=== PATIENT | male | born 1950 | race Two or more races ===

== ENCOUNTER 2025-05-29 09:02 | Inpatient (IN) | payer MEDICARE, MEDICAID ==
[~2025-05-29] VITALS: Ht 188 cm; Wt 96.7 kg
[2025-05-29 09:31] VITALS: PULSE 96; O2SAT 97
--- NOTE | 2025-05-29 09:34 | ED.PDOC ---
History of present illness HPI Comments 74 y/o M, with PMHx of Parkinson, seizures, and thyroid disease presents to the ED for CC of hypoglycemia. EMS reports, patient is coming from [facility] longterm where he was found by staff being difficult to arouse. [facility] EMS[facility] sugar and received a reading of 32; 1mg of glycogen was given prior to their arrival with a positive response. Upon arrival to the scene, patient was able to answer question appropriately and was given an additional 25g of D10. Patient denies dizziness, weakness, nausea, vomiting, urinary frequency, or blurred vision. No other symptoms or modifying factors are present at this time. Chief Complaint: Hypoglycemia Time Seen by MD: 09:15 History of present illness: Nurses Notes, Medications, Allergies Allergies: Coded Allergies: NO KNOWN ALLERGIES (Unverified , 05/29/25) Information Source: Patient Mode of Arrival: EMS Timing: Hours Duration: Since onset Prehospital treatment: Other Associated signs and symptoms: None Past Medical History PAST MEDICAL HISTORY: HTN, Seizures, Thyroid Surgical History: Unknown Family History Family History: Unknown Social History Smoker: Non-Smoker Alcohol: Denies ETOH Use Drugs: Denies Drug Use Lives In: Pen[facility] Constitutional: denies: chills, diaphoresis, fatigue, fever, malaise, sweats, weakness, others EENTM: denies: blurred vision, double vision, ear bleeding, ear discharge, ear drainage, ear pain, ear ringing, eye pain, eye redness, hearing loss, mouth pain, mouth swelling, nasal discharge, nose bleeding, nose congestion, nose pain, photophobia, tearing, throat pain, throat swelling, voice changes, others Respiratory: denies: cough, hemoptysis, orthopnea, SOB at rest, shortness of breath, SOB with excertion, stridor, wheezing, others Cardiovascular: denies: chest pain, dizzy spells, diaphoresis, Dyspnea on exertion, edema, irregular heart beat, left arm pain, lightheadedness, palpitations, PND, syncope, others Gastrointestinal: denies: abdomen distended, abdominal pain, blood streaked bowels, constipated, diarrhea, dysphagia, difficulty swallowing, hematemesis, melena, nausea, poor appetite, poor fluid intake, rectal bleeding, rectal pain, vomiting, others Genitourinary: denies: burning, dysuria, flank pain, frequency, hematuria, incontinence, penile discharge, penile sore, pain, testicle pain, testicle swelling, urgency, others Neurological: denies: dizziness, fainting, headache, left sided numbness, left sided weakness, numbness, paresthesia, pre-existing deficit, right sided numbness, right sided weakness, seizure, speech problems, tingling, tremors, weakness, others Musculoskeletal: denies: back pain, gout, joint pain, joint swelling, muscle pain, muscle stiffness, neck pain, others Integumetry: denies: bruises, change in color, change in hair/nails, dryness, laceration, lesions, lumps, rash, wounds, others Allergic/Immunocompromised: denies: Difficulty Healing, Frequent Infections, Hives, Itching, others Hematologic/Lymphatic: denies: anemia, blood clots, easy bleeding, easy bruising, swollen glands, others Endocrine: denies: excessive hunger, excessive sweating, excessive thirst, excessive urination, flushing, intolerance to cold, intolerance to heat, unexplained weight gain, unexplained weight loss, others Psychiatric: denies: anxiety, bipolar disorder, depression, hopeless, panic disorder, schizophrenia, sleepless, suicidal, others All Other Systems: Reviewed and Negative Physical Exam General Appearance: No Apparent Distress, Normal HEENT: Normal ENT Inspection, Pharynx Normal, TMs Normal Neck: Full Range of Motion, Non-Tender, Normal, Normal Inspection Respiratory: Chest Non-Tender, Lungs Clear, No Accessory Muscle Use, No Re spiratory Distress, Normal Breath Sounds Cardiovascular: No Edema, No JVD, No Murmur, No Gallop, Normal Peripheral Pulses, Regular Rate/Rhythm Breast Exam: Deferred Gastrointestinal: No Organomegaly, Non Tender, No Pulsatile Mass, Normal Bowel Sounds, Soft Genitalia: Deferred Pelvic: Deferred Rectal: Deferred Extremities: No calf tenderness, Normal capillary refill, Normal inspection, Normal range of motion, Non-tender, No pedal edema Musculoskeletal : Apperance: Normal Neurologic: Alert, glass forming engineer II-XII nml as Tested, No Motor Deficits, Normal Affect, Normal Mood, No Sensory Deficits Cerebellar Function: Normal Reflexes: Normal Skin: Dry, Normal Color, Warm Lymphatic: No Adenopathy Was a procedure done? Was a procedure done?: No Differential Diagnosis (DM) Differential Diagnosis: Hypoglycemia X-Ray, Labs, Meds, VS Vital Signs Date Time Temp Pulse Resp B/P (MAP) Pulse Ox O2 Delivery O2 Flow Rate FiO2 05/29/25 10:00 94 12 146/77 (100) 96 05/29/25 09:41 97 18 141/92 (108) 96 05/29/25 09:31 96 97 Room Air* 0 21 05/29/25 09:08 97.6 94 17 128/62 95 97.6 Lab Test 05/29/25 11:25 05/29/25 10:12 Range/Units Troponin I High Sensitivity Pending 5 </=54 ng/L White Blood Count 11.5 H 4.4-10.8 10^3/uL Red Blood Count 4.89 4.5-5.90 10^6/uL Hemoglobin 15.4 13.5-17.5 g/dL Hematocrit 44.2 41.0-53.0 % Mean Corpuscular Volume 90.5 80.0-100.0 fL Mean Corpuscular Hemoglobin 31.6 28.0-32.0 pg Mean Corpuscular Hemoglobin Concent 34.9 32.0-36.0 g/dL Red Cell Distribution Width 12.7 11.8-14.3 % Platelet Count 207 140-450 10^3/uL Mean Platelet Volume 9.6 6.9-10.8 fL Neutrophils (%) (Auto) 91.8 H 37.0-80.0 % Lymphocytes (%) (Auto) 4.5 L 10.0-50.0 % Monocytes (%) (Auto) 3.2 0.0-12.0 % Eosinophils (%) (Auto) 0.0 0.0-7.0 % Basophils (%) (Auto) 0.5 0.0-2.0 % Neutrophils # (Auto) 10.5 H 1.6-8.6 10 ^3/uL Lymphocytes # (Auto) 0.5 0.4-5.4 10 ^3/uL Monocytes # (Auto) 0.4 0-1.3 10 ^3/uL Eosinophils # (Auto) 0 0-0.8 10 ^3/uL Basophils # (Auto) 0.1 0-0.2 10 ^3/uL Nucleated Red Blood Cells 0.1 % Sodium Level 138 136-145 mmol/L Potassium Level 4.5 3.5-5.1 mmol/L Chloride Level 102 98-107 mmol/L Carbon Dioxide Level 19 L 20-31 mmol/L Anion Gap 17 H 5-15 Blood Urea Nitrogen 14 9-23 mg/dL Creatinine 1.00 0.700-1.30 mg/dL Glomerular Filtration Rate Calc 80 >90 mL/min BUN/Creatinine Ratio 14.0 10.0-20.0 Serum Glucose 187 H 74-106 mg/dL Calcium Level 9.8 8.7-10.4 mg/dL Current Medications Medications (Trade) Dose Ordered Sig/Edith Route Start Time Stop Time Status Last Admin Carbidopa/Levodopa (Sinemet 25/ 100MG) 1 tab ONCE ONCE PO 05/29/25 09:45 05/29/25 09:46 DC 05/29/25 10:08 [place] [address] Ph: [phone] DIAGNOSTIC IMAGING Diagnostic Imaging Report : [id number] Signed PATIENT: PEMA BERMEOACCT: [id number] UNIT: [id number] : 1950 LOC: ER ROOM / BED: / AGE / SEX: 74 / M ADM STATUS: REG ER SERVICE ORDERING PHYSICIAN: MAREK NINA MD PROCEDURE(s): CXRP - CHEST PORTABLE REASON: weakness ORDER NUMBER(s): [id number], ACCESSION NUMBER(s): [id number] EXAM: XY CHEST PORTABLE HISTORY: weakness COMPARISON: None TECHNIQUE: Portable AP view of the chest was performed. FINDINGS: There is left mid lung opacity partially obscuring the left heart border. There is a calcified granuloma in the right mid lung. No pneumothorax. The heart is not enlarged. 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 IMPRESSION: Left mid lung opacity partially obscures the left heart border and may represent atelectasis, scarring, or pneumonia. In the absence of previous chest imaging, consider follow-up noncontrast CT scan of the chest for better characterization. ATED BY: ANGELLA TYLER MD DICTATED DATE/TIME: 05/29/25 1017 SIGNED BY: ANGELLA TYLER MD SIGNED DATE/TIME: 05/29/25 1017 CC: Time of 1ST Reevaluation: 09:45 Reevaluation 1ST: Unchanged Patient Education/Counseling: Diagnosis, Treatment Family Education/Counseling: No Family Present SEPSIS Sepsis Screen Date sepsis recognized/suspect: May 29, 2025 Time Sepsis recognized/suspect: 909 Recent Procedure: No On Antibiotic Therapy: No Respiratory Rate >20: No Heart Rate >90: Yes Temp<36 C (96.8 F) or >38.3 C: No SBP <90 or MAP <65 mmHG: No New Acute Mental Status Change: No Is the patient on CPAP, BIPAP,: No Physician Orders Urinalysis (05/29/25 09:44) Chest Portable (05/29/25 09:44) Troponin-I Hs (05/29/25 10:44) Troponin-I Hs (05/29/25 12:44) Vital Signs Date Time Temp Pulse Resp B/P (MAP) Pulse Ox O2 Delivery O2 Flow Rate FiO2 05/29/25 10:00 94 12 146/77 (100) 96 05/29/25 09:41 97 18 141/92 (108) 96 05/29/25 09:31 96 97 Room Air* 0 21 05/29/25 09:08 97.6 94 17 128/62 95 97.6 Laboratory Tests Test 05/29/25 10:12 White Blood Count 11.5 10^3/uL (4.4-10.8) H Medications Medications Dose Ordered Sig/Edith Route Start Time Stop Time Status Last Admin Dose Admin Carbidopa/Levodopa 1 tab ONCE ONCE PO 05/29/25 09:45 05/29/25 09:46 DC 05/29/25 10:08 Departure 1 Departure Time of Disposition: 11:50 (Patient with recurrent hypoglycemia and found to have a pneumonia. Patient patient will be empirically covered with antibiotics and admitted for further workup and expert consultation) Impression: Primary Impression: Pneumonia Qualified Codes: J18.9 - Pneumonia, unspecified organism Additional Impressions: Shortness of breath Recurrent severe hypoglycemia Acute metabolic encephalopathy Disposition: ADMITTED INPATIENT Admit to: Med Surg Condition: Serious Critical Care Note Critical Care Time?: Yes Critical care comment: Altered mental status Authorized and Performed by: Marek Nina MD Total critical care time: Approximately 38 minutes Due to a high probability of clinically significant, life threatening deterioration, the patient required my highest level of preparedness to intervene emergently and I personally spent this critical care time directly and personally managing the patient. This critical care time included obtaining a history; examining the patient; pulse oximetry; ordering and review of studies; arranging urgent treatment with development of a management plan; evaluation of patient's response to treatment; frequent reassessment; and, discussions with other providers. This critical care time was performed to assess and manage the high probability of imminent, life-threatening deterioration that could result in multi-organ failure. It was exclusive of separately billable procedures and treating other patients and teaching time. Please see my other sections and the rest of the note for further information on patient assessment and treatment. Stability Stability form required: No Heart Score Heart Score: Heart Score Response (Comments) Value History N/A 0 EKG N/A 0 Age N/A 0 Risk Factors N/A 0 Troponin N/A 0 Total 0 I personally scribed for MAREK NINA MD ([email or web address]) on 05/29/25 at 09:34. Electronically submitted by Neeta Bucio ([email or web address]). I personally scribed for MAREK NINA MD ([email or web address]) on 05/29/25 at 09:43. Electronically submitted by Neeta Bucio ([email or web address]). I personally scribed for MAREK NINA MD ([email or web address]) on 05/29/25 at 10:52. Electronically submitted by Neeta Bucio ([email or web address]). MAREK NINA MD May 29, 2025 09:34
[2025-05-29] MEDS: CARBIDOPA W LEVODOPA 25/100mg TABLET PO ONE (10:08)
--- NOTE | 2025-05-29 10:20 | DVH ---
EXAM: XY CHEST PORTABLE HISTORY: weakness COMPARISON: None TECHNIQUE: Portable AP view of the chest was performed. FINDINGS: There is left mid lung opacity partially obscuring the left heart border. There is a calcified granu jorge in the right mid lung. No pneumothorax. The heart is not enlarged. There is thoracic degenerati ve disc disease. IMPRESSION: Left mid lung opacity partially obscures the left heart border and may represent atelectasis, scarrin g, or pneumonia. In the absence of previous chest imaging, consider follow-up noncontrast CT scan of the chest for better characterization.
[2025-05-29 10:23] LABS: Hematocrit 44.2 % (41.0-53.0); Hemoglobin 15.4 g/dL (13.5-17.5); Mean Corpuscular Hemoglobin 31.6 pg (28.0-32.0); Mean Corpuscular Volume 90.5 fL (80.0-100.0); Nucleated Red Blood Cells % 0.1 %
[2025-05-29 10:32] LABS: Chloride 102 mmol/L (98-107); Potassium 4.5 mmol/L (3.5-5.1); Sodium 138 mmol/L (136-145)
[2025-05-29 10:33] LABS: Anion Gap 17 (5-15)
[2025-05-29 10:34] LABS: Calcium 9.8 mg/dL (8.7-10.4); Carbon Dioxide 19 mmol/L (20-31)
[2025-05-29 10:39] LABS: BUN/Creatinine Ratio 14.0 (10.0-20.0); Blood Urea Nitrogen 14 mg/dL (9-23); Glucose 187 mg/dL (74-106)
[2025-05-29] MEDS: AZITHROMYCIN 250 MG TAB PO ONE (12:53)
[2025-05-29] MEDS: CEFEPIME 2GM/50ML NS 50 ML IV ONE (12:54)
[2025-05-29] MEDS: SODIUM CHLORIDE 0.9% 1,000 ML IV ONE (12:54)
[2025-05-29 13:02] LABS: Urine Protein, UAD Negative (Negative)
[2025-05-29 14:09] LABS: Lactic Acid w/Reflex 5.4 mmol/L (0.4-2.0)
[2025-05-29] MEDS ORDERED: DOCUSATE SOD 100 MG CAP PO PRN (15:00)
[2025-05-29] MEDS ORDERED: DEXTROSE (50%) 50ML SYRG IV PRN ×2 (15:00→18:15)
[2025-05-29] MEDS: levETIRAcetam 500 mg/100ml 100 ML IV ONE (15:00)
[2025-05-29] MEDS ORDERED: NITROGLYCERIN 0.4 MG SL TAB SL PRN (15:00)
[2025-05-29] MEDS ORDERED: MORPHINE SULFATE INJ 2 MG/ml SYRG IV PRN (15:00)
[2025-05-29] MEDS: HYDROcodone-ACET 5/325MG TAB PO ONE (15:00)
[2025-05-29] MEDS: levETIRAcetam 1000 mg/100ml 100 ML IV ONE (15:00)
[2025-05-29] MEDS ORDERED: AZITHROMYCIN 500MG/ 250ML 250 ML IV ONE (15:00)
[2025-05-29] MEDS: PIPERACILLIN-TAZOB 3.375GM 100 ML IV ONE (15:15)
--- NOTE | 2025-05-29 15:19 | DVHHP2 ---
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 chief complaint [facility] they found patient difficult to arouse in altered they checked his glucose and it was low at 32 they gave him glycogen oral which gave good response but patient was still little bit altered so they gave him some glucose to IV which really awaken him patient currently in bed shaking with Parkinson's movement with a flushed face but he is requesting his seizure med because he has not had it this morning he currently denies any chest pain denies any shortness a breath when evaluating patient's labs and imaging cefepime was given azithromycin we will saline patient's Sinemet was given for Parkinson's disease white count was found to be 11.5 glucose was 187 troponin x2 was negative patient has a chest x-ray shows left lung mid with a opacities and recommended a CT scan of the chest which we will be order patient was started on prophylaxis treatment for aspiration pneumonia since it appears to be pneumonia UA shows few ketones otherwise unremarkable we will admit and check Accu-Cheks every 4 hours for now. We will admit for further workup and care Past Medical History See HPI above Past Surgical History See HPI above Past Social History The patient lives at home, denies smoking, alcohol or illicit drugs abuse. Review of Systems Constitutional: No: Fever, Chills, Sweats, Weakness, Malaise, Other Eyes: No: Pain, Vision change, Conjunctivae inflammation, Eyelid inflammation, Other, Redness ENT: No: Ear pain, Ear discharge, Nose pain, Nose discharge, Nose congestion, Mouth pain, Mouth swelling, Throat pain, Throat swelling, Other Respiratory: No: Cough, Dry, Shortness of breath, SOB with excertion, Wheezing, Hemoptysis, Pleuritic Pain, Sputum, Wheezing, Other Cardiovascular: No: Chest Pain, Palpitations, Orthopnea, Paroxysmal Noc. Dyspnea, Edema, Lt Headedness, Other Gastrointestinal: No: Nausea, Vomiting, Abdominal Pain, Diarrhea, Constipation, Melena, Hematochezia, Other Genitourinary: No Dysuria, No Frequency, No Incontinence, No Hematuria, No Retention, No Other Musculoskeletal: No: other, neck pain, shoulder pain, arm pain, back pain, hand pain, leg pain, foot pain Skin: No: Rash, Lesions, Jaundice, Bruising, Other Neurological: Confusion; No: Weakness, Numbness, Incoordination, Change in speech, Seizures, Other Allergies: Coded Allergies: NO KNOWN ALLERGIES (Unverified , 05/29/25) Exam Vital Signs Vital Signs Date Time Temp Pulse Resp B/P (MAP) Pulse Ox O2 Delivery O2 Flow Rate FiO2 05/29/25 10:00 94 12 146/77 (100) 96 05/29/25 09:31 Room Air* 0 21 05/29/25 09:08 97.6 97.6 General Appearance: Alert, Oriented X3, Cooperative, No acute distress HEENT: Atraumatic, PERRLA, EOMI, Mucous membr. moist/pink Respiratory: Other (Diminished lung sounds throughout) Cardiovascular: Regular rate, Normal S1, Normal S2, No murmurs Abdominal: Normal bowel sounds, Soft, No tenderness, No hepatospenomegaly, No masses Extremities: No clubbing, No cyanosis, No edema, Normal pulses, No tenderness/swelling Skin: No rashes, No breakdown, No significant lesion Neuro: Normal gait, Normal speech, Strength at 5/5 X4 ext, Normal tone, Sensation intact, Other (Acute shaking on exam consistent with his Parkinson's moment) Psych/Mental Status: Mental status NL, Mood NL Labs/Xrays Chest x-ray shows left lung med opacity recommends CT scan I reviewed labs, imaging CT scan abdomen pelvis, EKG and all diagnostic studies on this patient from ED records and the medical chart Labs Test 05/29/25 14:08 05/29/25 13:22 05/29/25 12:35 05/29/25 10:12 Range/Units POC Glucose 330 H 70-106 mg/dl Lactic Acid Level 5.4 *H 0.4-2.0 mmol/L Troponin I High Sensitivity 12 </=54 ng/L Urine Color Light-yellow Yellow Urine Clarity Clear Clear Urine pH 5.0 5.0-9.0 Urine Specific Gallion 1.014 1.001-1.035 Urine Protein Negative Negative Urine Ketones 3+ H Negative Urine Blood Trace H Negative /uL Urine Nitrite Negative Negative Urine Bilirubin Negative Negative Urine Urobilinogen Normal Negative mg/dL Urine Leukocyte Esterase Negative Negative /uL Urine RBC 3 0 - 3 /hpf Urine Microscopic WBC 1 0-3 /HPF Urine Squamous Epithelial Cells Few <5 /hpf Urine Bacteria None seen None Seen /hpf Urine Glucose 4+ H Normal mg/dL White Blood Count 11.5 H 4.4-10.8 10^3/uL Red Blood Count 4.89 4.5-5.90 10^6/uL Hemoglobin 15.4 13.5-17.5 g/dL Hematocrit 44.2 41.0-53.0 % Mean Corpuscular Volume 90.5 80.0-100.0 fL Mean Corpuscular Hemoglobin 31.6 28.0-32.0 pg Mean Corpuscular Hemoglobin Concent 34.9 32.0-36.0 g/dL Red Cell Distribution Width 12.7 11.8-14.3 % Platelet Count 207 140-450 10^3/uL Mean Platelet Volume 9.6 6.9-10.8 fL Neutrophils (%) (Auto) 91.8 H 37.0-80.0 % Lymphocytes (%) (Auto) 4.5 L 10.0-50.0 % Monocytes (%) (Auto) 3.2 0.0-12.0 % Eosinophils (%) (Auto) 0.0 0.0-7.0 % Basophils (%) (Auto) 0.5 0.0-2.0 % Neutrophils # (Auto) 10.5 H 1.6-8.6 10 ^3/uL Lymphocytes # (Auto) 0.5 0.4-5.4 10 ^3/uL Monocytes # (Auto) 0.4 0-1.3 10 ^3/uL Eosinophils # (Auto) 0 0-0.8 10 ^3/uL Basophils # (Auto) 0.1 0-0.2 10 ^3/uL Nucleated Red Blood Cells 0.1 % Sodium Level 138 136-145 mmol/L Potassium Level 4.5 3.5-5.1 mmol/L Chloride Level 102 98-107 mmol/L Carbon Dioxide Level 19 L 20-31 mmol/L Anion Gap 17 H 5-15 Blood Urea Nitrogen 14 9-23 mg/dL Creatinine 1.00 0.700-1.30 mg/dL Glomerular Filtration Rate Calc 80 >90 mL/min BUN/Creatinine Ratio 14.0 10.0-20.0 Serum Glucose 187 H 74-106 mg/dL Calcium Level 9.8 8.7-10.4 mg/dL SEPSIS Sepsis Screen Date sepsis recognized/suspect: May 29, 2025 Time Sepsis recognized/suspect: 909 Recent Procedure: No On Antibiotic Therapy: No Respiratory Rate >20: No Heart Rate >90: Yes Temp<36 C (96.8 F) or >38.3 C: No SBP <90 or MAP <65 mmHG: No New Acute Mental Status Change: No Is the patient on CPAP, BIPAP,: No Physician Orders Chest Portable (05/29/25 09:44) Blood Culture (05/29/25 11:49) Levetiracetam 1000 Mg/100ml (Levetiracet (05/29/25 15:00) Levetiracetam 500 Mg/100ml (Levetiraceta (05/29/25 15:00) Hydrocodone-Acet 5/325mg Tab (Naco 5/32 (05/29/25 15:00) Consistent Carb(Ccho)Diabetes (05/29/25 Dinner) Admit (05/29/25 14:53) Allergies (05/29/25 14:53) Code Status (05/29/25 14:53) Oxygen Per Hour (05/29/25 14:53) Ondansetron Hcl (Zofran) (05/29/25 15:00) Docusate Sodium Capsule (Colace Capsule) (05/29/25 15:00) Enoxaparin Sodium (Lovenox) (05/30/25 10:00) Fall Risk Precautions In Place QSHIFT (05/29/25 14:53) Complete Blood Count (05/30/25 04:00) Comprehensive Metabolic Panel (05/30/25 04:00) Cardiac Diet-2gna,Lofat,Lochol (05/29/25 Dinner) Condition: Stable (05/29/25 14:53) Morphine Sulfate Injection (05/29/25 15:00) Sequential Compression Device (05/29/25 ) Nitroglycerin Sublingual (Ntrostat Subli (05/29/25 15:00) Stat Ekg For Chest Pain (05/29/25 14:53) Notify Of Changes From Base (05/29/25 14:53) Digital Program Manager For 24 Hours (05/29/25 14:53) Emergency Dysrhythmia Protocol (05/29/25 14:53) Rhythm Strips Once Every Shift (05/29/25 14:53) Oxygen By Nasal Cannula (05/29/25 14:53) Glucose Blood (Accu-Chek Comfort Curve T (05/29/25 16:00) Dextrose 50% Syringe (05/29/25 15:00) Seizure Assessment (05/29/25 14:53) Seizure Precautions (05/29/25 ) Seizure Precautions In Place (05/29/25 14:53) Communication Order (05/29/25 14:53) Ceftriaxone Ivpb Rocephin (05/30/25 09:00) Ceftriaxone Ivpb Rocephin (05/29/25 15:00) Azithromycin 500mg/ 250ml (Zithromax 50 (05/30/25 10:00) Azithromycin 500mg/ 250ml (Zithromax 50 (05/29/25 15:00) Vital Signs Date Time Temp Pulse Resp B/P (MAP) Pulse Ox O2 Delivery O2 Flow Rate FiO2 05/29/25 10:00 94 12 146/77 (100) 96 05/29/25 09:41 97 18 141/92 (108) 96 05/29/25 09:31 96 97 Room Air* 0 21 05/29/25 09:08 97.6 94 17 128/62 95 97.6 Laboratory Tests Test 05/29/25 10:12 05/29/25 13:22 White Blood Count 11.5 10^3/uL (4.4-10.8) H Lactic Acid Level 5.4 mmol/L (0.4-2.0) *H Medications Medications Dose Ordered Sig/Edith Route Start Time Stop Time Status Last Admin Dose Admin Azithromycin 500 mg ONCE ONCE PO 05/29/25 12:00 05/29/25 12:01 DC 05/29/25 12:53 500 MG Carbidopa/Levodopa 1 tab ONCE ONCE PO 05/29/25 09:45 05/29/25 09:46 DC 05/29/25 10:08 1 TAB Cefepime HCl 50 ml @ 50 mls/hr ONCE ONCE IV 05/29/25 12:00 05/29/25 12:59 DC 05/29/25 12:54 50 MLS/HR Sodium Chloride 1,000 ml @ 1,000 mls/hr Q1H ONCE IV 05/29/25 12:00 05/29/25 12:59 DC 05/29/25 12:54 1,000 MLS/HR Assessment/Plan Assessment/Plan acute bacterial pna likely from aspiration since with ams found on cxr ordered vanco and zosyn for now since likely aspiration pna ordered sputum fu results ordered ct scan chest fu results o2 to keep sats .92% acute metabolic encephalopathy likely from low blood glucose ordered accucheck q4h for now monitor glucose keep >120 dextrose if hypoglycemic per protocol acute leukocytosis likely from pna cont antibiotics for now chronic problems parkison disease seizures cont home medication seizure precautions ativan prn seizures dm accuck q4h for now htn thyroid disease 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 fen/ppx diet hl scd ivf plan admit to tele nursing to put home medication for reconciliation Plan discussed with: Patient My Orders Orders - MARQUISE WATTERS DNP Procedure Category Date Status Time Levetiracetam 1000 PHA 05/29/25 Logged Mg/100ml (Levetiracet 15:00 Levetiracetam 500 PHA 05/29/25 Logged Mg/100ml (Levetiraceta 15:00 Hydrocodone-Acet PHA 05/29/25 Logged 5/325mg Tab (Naco 15:00 Consistent DIET 05/29/25 Transmitted Carb(Ccho)Diabetes Dinner Admit ADMIT 05/29/25 Verified 14:53 Allergies FANNY 05/29/25 Verified 14:53 Code Status CODE 05/29/25 Verified 14:53 Oxygen Per Hour RT 05/29/25 Verified 14:53 Ondansetron Hcl PHA 05/29/25 Verified (Zofran) 15:00 Docusate Sodium PHA 05/29/25 Verified Capsule (Colace 15:00 Enoxaparin Sodium PHA 05/30/25 Verified (Lovenox) 10:00 Fall Risk Precautions FANNY 05/29/[address] 14:53 Complete Blood Count LAB 05/30/25 Verified 04:00 Comprehensive LAB 05/30/25 Verified Metabolic Panel 04:00 Cardiac DIET 05/29/25 Verified Diet-2gna,Lofat,Lochol Dinner Condition: Stable FANNY 05/29/25 Verified 14:53 Morphine Sulfate PHA 05/29/25 Verified Injection 15:00 Sequential FANNY 05/29/25 Verified Compression Device Nitroglycerin [facility] 05/29/25 Verified Sublingual (Ntrostat 15:00 Stat Ekg For Chest [facility] 05/29/25 Verified Pain 14:53 Notify Md Of Changes [facility] 05/29/25 Verified From Base 14:53 Digital Program Manager For [facility] 05/29/25 Verified 24 Hours 14:53 Emergency Dysrhythmia [facility] 05/29/25 Verified Protocol 14:53 Rhythm Strips Once [facility] 05/29/25 Verified Every Shift 14:53 Oxygen By Nasal RT 05/29/25 Verified Cannula 14:53 Glucose Blood [facility] 05/29/25 Verified (Accu-Chek Comfort 16:00 Dextrose 50% Syringe PHA 05/29/25 Verified 15:00 Seizure Assessment [facility] 05/29/25 Verified 14:53 Seizure Precautions ED NURSING 05/29/25 Verified Seizure Precautions [facility] 05/29/[address] 14:53 Communication Order ORDERS 05/29/25 Verified 14:53 Ceftriaxone Ivpb PHA 05/30/25 Verified Rocephin 09:00 Ceftriaxone Ivpb PHA 05/29/25 Verified Rocephin 15:00 Azithromycin 500mg/ PHA 05/30/25 Verified 250ml (Zithromax 50 10:00 Azithromycin 500mg/ PHA 05/29/25 Verified 250ml (Zithromax 50 15:00 Date of Service: May 29, 2025 Billing Provider: MARQUISE WATTERS DNP Common Visit Codes: [id number] INP/OBS CARE (HIGH) MARQUISE WATTERS DNP May 29, 2025 15:19
[2025-05-29] MEDS: IOHEXOL 300 MG/ML 100ML BOTTLE IJ ONE (15:32)
[2025-05-29] MEDS: ACCU-CHEK COMFORT CURVE STRIP VI SCH ×2 (16:00→20:00)
--- NOTE | 2025-05-29 16:42 | DVH ---
EXAM: CT CHEST WITH CONTRAST HISTORY: EVAL FOR ACUTE LUNG OPACITY; PNA TECHNIQUE: CT angiogram was performed. CT scans at this facility use dose modulation, iterative recon struction, and/or weight based dosing when appropriate to reduce radiation dose to as low as reasonab ly achievable. Coronal and sagittal reformations and maximum intensity projection images were created from the transaxial source data by the computer technologist and workstation, as well as 3-D volume render ed images with MIPs. COMPARISON: XY CHEST PORTABLE on DOS: 05/29/25 FINDINGS: [LOWER NECK]: Unremarkable [LYMPH NODES/MEDIASTINUM]: No abnormal lymph nodes by CT size criteria [CARDIOVASCULAR]: Normal cardiac size. No pericardial effusion. No aneurysmal dilatation of the great vessels. Coronary artery calcifications. [PULMONARY ARTERIES]: No pulmonary arterial filling defect. Normal caliber of the main pulmonary leandro ry. No evidence of elevated right heart pressures. [UPPER ABDOMEN]: Volume redistribution of the liver with nodular contour compatible with likely surro unding morphology and/or chronic liver disease. [MUSCULOSKELETAL]: No acute fracture or aggressive focal osseous lesion. Multilevel degenerative laguerre ge of the visualized spine. right posterolateral prior rib fracture callus formation. [CHEST WALL]: Unremarkable. [LUNG PARENCHYMA/PLEURAL SPACE]: No consolidation, suspicious focal airspace opacity, or suspicious n odules. No pleural effusion or pneumothorax. Calcific granuloma of the periphery of the left lower lo be pleural-parenchymal scarring in the inferior lingula IMPRESSION: 1. No acute pulmonary embolism. 2. No consolidation or pleural effusion. 3. Cirrhotic morphology of the liver.
[2025-05-29] MEDS ORDERED: VANCOMYCIN PER PHARMACY 0 MG IV SCH (16:45)
[2025-05-29] MEDS: VANCOMYCIN 750MG KIT 100 ML IV SCH (18:00)
[2025-05-29] MEDS ORDERED: VANCOMYCIN 500mg/100mL 100 ML IV SCH (18:00)
[2025-05-29 20:50] VITALS: BP 146/70; PULSE 94; RESP 15; TEMP 98.3; O2SAT 95
[2025-05-29] MEDS: InsuLIN REG 1unit/0.01ml Soln (100units/ml) SC SCH (21:08)
[2025-05-29] MEDS: PIPERACILLIN-TAZOB 3.375GM 100 ML IV SCH (21:50)
[2025-05-29 23:00] VITALS: BP 149/77; PULSE 95; RESP 16; TEMP 98.1; O2SAT 96
[2025-05-29] MEDS ORDERED: GABA-1308 PO (23:25)
[2025-05-29] MEDS ORDERED: CARB-118 PO (23:25)
[2025-05-29] MEDS ORDERED: METF-370 PO (23:25)
[2025-05-29] MEDS ORDERED: DICL1GEL59 EX (23:25)
[2025-05-29] MEDS ORDERED: INSU1INJ19 SC (23:25)
[2025-05-29] MEDS ORDERED: CYCL-839 PO (23:25)
[2025-05-29] MEDS ORDERED: MET25T PO (23:25)
[2025-05-29] MEDS ORDERED: KEP500T PO (23:25)
[2025-05-29] MEDS ORDERED: LEVO150T10 PO (23:25)
[2025-05-29] MEDS ORDERED: HYDR-4902 PO (23:25)
[2025-05-29] MEDS ORDERED: AMLO1TAB22 PO (23:25)
[2025-05-29] MEDS ORDERED: DIPH25TA29 PO (23:25)
[2025-05-29] MEDS ORDERED: INSU100I28 IJ (23:25)
[2025-05-29] MEDS ORDERED: SPIR25TA8 PO (23:25)
[2025-05-29] MEDS ORDERED: MULT-928 PO (23:25)
[2025-05-29 23:40] VITALS: PULSE 88; RESP 17; O2SAT 95
[2025-05-30] VITALS (8 sets, daily range): BP systolic 131–154; BP diastolic 80–89; PULSE 76–99; RESP 16–21; TEMP 97.8–99.7; O2SAT 96–97
[2025-05-30 05:46] LABS: Hematocrit 41.8 % (41.0-53.0); Hemoglobin 15.0 g/dL (13.5-17.5); Mean Corpuscular Hemoglobin 31.9 pg (28.0-32.0); Mean Corpuscular Volume 89.1 fL (80.0-100.0); Nucleated Red Blood Cells % 0.0 %
[2025-05-30 06:11] LABS: Alanine Aminotransferase 27 U/L (7-40); Albumin 4.2 g/dL (3.2-4.8); Alkaline Phosphatase 96 U/L (46-116); Anion Gap 12 (5-15); BUN/Creatinine Ratio 14.3 (10.0-20.0); Bilirubin, Total 0.9 mg/dL (0.2-1.0); Blood Urea Nitrogen 19 mg/dL (9-23); Calcium 9.7 mg/dL (8.7-10.4); Carbon Dioxide 23 mmol/L (20-31); Chloride 102 mmol/L (98-107); Potassium 4.5 mmol/L (3.5-5.1); Sodium 137 mmol/L (136-145); Total Protein 7.0 g/dL (5.7-8.2)
[2025-05-30 06:12] LABS: Glucose 312 mg/dL (74-106)
[2025-05-30] MEDS: ENOXAPARIN SOD 40 MG/0.4 ML SYRINGE SC SCH (08:31)
[2025-05-30] MEDS ORDERED: AZITHROMYCIN 500MG/ 250ML 250 ML IV SCH (10:00)
--- NOTE | 2025-05-30 11:05 | DVHPN2 ---
Reviewed: Care Plan, H&P, Labs, Medications, Previous Orders, Radiology Changes from previous H/P or p: No Changes Eyes: No Pain, No Vision change, No Conjunctivae inflammation, No Eyelid inflammation, No Other, No Redness ENT: No Ear pain, No Ear discharge, No Nose pain, No Nose discharge, No Nose congestion, No Mouth pain, No Mouth swelling, No Throat pain, No Throat swelling, No Other Cardiovascular: No Chest Pain, No Palpitations, No Orthopnea, No Paroxysmal Noc. Dyspnea, No Edema, No Lt Headedness, No Other Respiratory: No Cough, No Dry, No Shortness of breath, No SOB with excertion, No Wheezing, No Hemoptysis, No Pleuritic Pain, No Sputum, No Other Gastrointestinal: No Nausea, No Vomiting, No Abdominal Pain, No Diarrhea, No Constipation, No Melena, No Hematochezia, No Other Genitourinary: No Dysuria, No Frequency, No Incontinence, No Hematuria, No Retention, No Other Musculoskeletal: No other, No neck pain, No shoulder pain, No arm pain, No back pain, No hand pain, No leg pain, No foot pain Skin: No Rash, No Lesions, No Jaundice, No Bruising, No Other Objective Vitals Vital Signs Date Time Temp Pulse Resp B/P (MAP) Pulse Ox O2 Delivery O2 Flow Rate FiO2 05/30/25 09:00 99.7 98 16 143/80 (101) 97 99.7 05/29/25 23:40 Room Air* 0 21 Intake/Output Intake and Output 05/30/25 07:00 Intake Total 250 ml Output Total 1450 ml Balance -1200 ml Intake Oral 250 ml Output Urine Total 1450 ml # Voids 1 # Bowel Movements 2 Medications Current Medications Medications Dose Ordered Sig/Edith Route Start Time Stop Time Status Last Admin Dose Admin Ondansetron HCl 4 mg Q4HP PRN IV 05/29/25 15:00 Docusate Sodium 100 mg BIDPRN PRN PO 05/29/25 15:00 Enoxaparin Sodium 40 mg DAILY SC 05/30/25 10:00 05/30/25 08:31 40 MG Morphine Sulfate 2 mg Q4HPRN PRN IV 05/29/25 15:00 Nitroglycerin 0.4 mg Q5MINP PRN SL 05/29/25 15:00 Dextrose 50 ml UD PRN IV 05/29/25 15:00 Cancel Piperacillin Sod/ Tazobactam Sod 100 ml @ 25 mls/hr Q8HR IV 05/29/25 22:00 05/30/25 06:25 25 MLS/HR Vancomycin HCl 0 ml @ 0 mls/hr UD IV 05/29/25 16:45 Vancomycin HCl 100 ml @ 200 mls/hr Q12H IV 05/29/25 18:00 Cancel Vancomycin HCl 100 ml @ 100 mls/hr Q12H IV 05/29/25 18:00 05/30/25 05:56 100 MLS/HR Diagnostic Test (Pha) 1 strip IQ4HR 05/29/25 20:00 05/30/25 08:34 1 STRIP Insulin Human Regular IQ4HR SC 05/29/25 20:00 05/30/25 08:33 6 UNITS Dextrose 50 ml UD PRN IV 05/29/25 18:15 Laboratory Results Laboratory Tests 05/30/25 05:20 Chemistry Test 05/30/25 05:20 Albumin 4.2 g/dL (3.2-4.8) Calcium Level 9.7 mg/dL (8.7-10.4) Total Protein 7.0 g/dL (5.7-8.2) LFT Test 05/30/25 05:20 Alanine Aminotransferase (ALT) 27 U/L (7-40) Alkaline Phosphatase 96 U/L (46-116) Aspartate Amino Transferase (AST) 27 U/L (13-40) Total Bilirubin 0.9 mg/dL (0.2-1.0) Urinalysis Test 05/29/25 12:35 Urine Color Light-yellow (Yellow) Urine Clarity Clear (Clear) Urine pH 5.0 (5.0-9.0) Urine Specific [place] 1.014 (1.001-1.035) Urine Protein Negative (Negative) Urine Ketones 3+ (Negative) H Urine Blood Trace /uL (Negative) H Urine Nitrite Negative (Negative) Urine Bilirubin Negative (Negative) Urine Urobilinogen Normal mg/dL (Negative) Urine Leukocyte Esterase Negative /uL (Negative) Urine RBC 3 /hpf (0 - 3) Urine Microscopic WBC 1 /HPF (0-3) Urine Squamous Epithelial Cells Few /hpf (<5) Urine Bacteria None seen /hpf (None Seen) Urine Glucose 4+ mg/dL (Normal) H Labs and/or images reviewed: Labs reviewed by me, Image(s) reviewed by me Assessment/Plan Assessment/Plan Septic shock with elevated white count hypoglycemia altered mental status Possible aspiration pneumonia Gram-positive versus Gram-negative: Zosyn vancomycin Acute metabolic encephalopathy Acute lactic acidosis Parkinson's disease: Seizures: Keppra Diabetes: Insulin sliding scale Hypothyroidism History of brain tumor status post surgery and radiation therapy in [place] 2018 Hypoglycemia blood sugar 34 at the scene [facility] Patient is full code Time spent 70 minute Advanced care planning time 20 mts Son Kelsea is the supervisor contact and service clerks Plan discussed with: Patient Date of Service: May 30, 2025 Billing Provider: DAKOTAH OLIVAS MD Common Visit Codes: [id number] CARE 30-74 MIN DAKOTAH OLIVAS MD May 30, 2025 11:05
[2025-05-30] MEDS: SODIUM CHLORIDE 0.9% 1,000 ML IV SCH (15:04)
[2025-05-30] MEDS: ONDANSETRON HCL 4 MG/2 ML VIAL IV PRN (22:05)
[2025-05-31] VITALS (7 sets, daily range): BP systolic 127–153; BP diastolic 80–98; PULSE 72–86; RESP 15–20; TEMP 97.8–99.1; O2SAT 95–99
--- NOTE | 2025-05-31 10:13 | DVHPN2 ---
Reviewed: Care Plan, H&P, Labs, Medications, Previous Orders, Radiology Changes from previous H/P or p: No Changes Eyes: No Pain, No Vision change, No Conjunctivae inflammation, No Eyelid inflammation, No Other, No Redness ENT: No Ear pain, No Ear discharge, No Nose pain, No Nose discharge, No Nose congestion, No Mouth pain, No Mouth swelling, No Throat pain, No Throat swelling, No Other Cardiovascular: No Chest Pain, No Palpitations, No Orthopnea, No Paroxysmal Noc. Dyspnea, No Edema, No Lt Headedness, No Other Respiratory: No Cough, No Dry, No Shortness of breath, No SOB with excertion, No Wheezing, No Hemoptysis, No Pleuritic Pain, No Sputum, No Other Gastrointestinal: No Nausea, No Vomiting, No Abdominal Pain, No Diarrhea, No Constipation, No Melena, No Hematochezia, No Other Genitourinary: No Dysuria, No Frequency, No Incontinence, No Hematuria, No Retention, No Other Musculoskeletal: No other, No neck pain, No shoulder pain, No arm pain, No back pain, No hand pain, No leg pain, No foot pain Skin: No Rash, No Lesions, No Jaundice, No Bruising, No Other Objective Vitals Vital Signs Date Time Temp Pulse Resp B/P (MAP) Pulse Ox O2 Delivery O2 Flow Rate FiO2 05/31/25 07:58 99.1 72 16 146/87 (106) 99 99.1 05/30/25 20:00 Room Air* 0 21 Intake/Output Intake and Output 05/31/25 07:00 Intake Total 640 ml Output Total 750 ml Balance -110 ml Intake Oral 440 ml IV Total 200 ml Output Urine Total 750 ml # Voids 3 # Bowel Movements 2 Medications Current Medications Medications Dose Ordered Sig/Edith Route Start Time Stop Time Status Last Admin Dose Admin Ondansetron HCl 4 mg Q4HP PRN IV 05/29/25 15:00 05/30/25 22:05 4 MG Docusate Sodium 100 mg BIDPRN PRN PO 05/29/25 15:00 Enoxaparin Sodium 40 mg DAILY SC 05/30/25 10:00 05/31/25 09:02 40 MG Morphine Sulfate 2 mg Q4HPRN PRN IV 05/29/25 15:00 Nitroglycerin 0.4 mg Q5MINP PRN SL 05/29/25 15:00 Dextrose 50 ml UD PRN IV 05/29/25 15:00 Cancel Piperacillin Sod/ Tazobactam Sod 100 ml @ 25 mls/hr Q8HR IV 05/29/25 22:00 05/31/25 04:37 25 MLS/HR Vancomycin HCl 0 ml @ 0 mls/hr UD IV 05/29/25 16:45 Vancomycin HCl 100 ml @ 200 mls/hr Q12H IV 05/29/25 18:00 Cancel Vancomycin HCl 100 ml @ 100 mls/hr Q12H IV 05/29/25 18:00 05/31/25 05:53 100 MLS/HR Diagnostic Test (Pha) 1 strip IQ4HR 05/29/25 20:00 05/31/25 09:05 1 STRIP Insulin Human Regular IQ4HR SC 05/29/25 20:00 05/31/25 09:03 4 UNITS Dextrose 50 ml UD PRN IV 05/29/25 18:15 Sodium Chloride 1,000 ml @ 125 mls/hr Q8H IV 05/30/25 11:15 05/30/25 18:05 125 MLS/HR Laboratory Results Laboratory Tests 05/30/25 05:20 05/31/25 05:33 Urinalysis Test 05/29/25 12:35 Urine Color Light-yellow (Yellow) Urine Clarity Clear (Clear) Urine pH 5.0 (5.0-9.0) Urine Specific [place] 1.014 (1.001-1.035) Urine Protein Negative (Negative) Urine Ketones 3+ (Negative) H Urine Blood Trace /uL (Negative) H Urine Nitrite Negative (Negative) Urine Bilirubin Negative (Negative) Urine Urobilinogen Normal mg/dL (Negative) Urine Leukocyte Esterase Negative /uL (Negative) Urine RBC 3 /hpf (0 - 3) Urine Microscopic WBC 1 /HPF (0-3) Urine Squamous Epithelial Cells Few /hpf (<5) Urine Bacteria None seen /hpf (None Seen) Urine Glucose 4+ mg/dL (Normal) H Microbiology Microbiology Date/Time Source Procedure Growth Status 05/29/25 13:22 Blood Blood Culture - Preliminary NO GROWTH AFTER 24 HOURS OF INCUBATION. Resulted Labs and/or images reviewed: Labs reviewed by me, Image(s) reviewed by me Assessment/Plan Assessment/Plan Septic shock with elevated white count hypoglycemia altered mental status Possible aspiration pneumonia Gram-positive versus Gram-negative: Zosyn vancomycin Acute metabolic encephalopathy Acute lactic acidosis Parkinson's disease: Seizures: Keppra Diabetes: Insulin sliding scale Hypothyroidism History of brain tumor status post surgery and radiation therapy in [place] 2019 Hypoglycemia blood sugar 34 at the scene [facility] Patient is full code Time spent 50 minute Advanced care planning time 20 mts Son Kelsea is the personal banking advisor Plan discussed with: Patient My Orders Orders - DAKOTAH OLIVAS MD Procedure Category Date Status Time Sodium Chloride 0.9% PHA 05/30/25 In Process 11:15 Npo (Nothing By DIET 05/30/25 Transmitted Mouth) Diet Lunch * Swallow Request ST 05/30/25 Transmitted 11:05 Communication Order ORDERS 05/30/25 Transmitted 11:05 Sepsis Initial FANNY 05/30/25 In Process Assessment 12:31 Sepsis Reassessment FANNY 05/30/25 In Process After Flui 14:31 * Wound Consult CONS 05/30/25 Transmitted Date of Service: May 31, 2025 Billing Provider: DAKOTAH OLIVAS MD Common Visit Codes: [id number] INP/OBS CARE(HIGH) DAKOTAH OLIVAS MD May 31, 2025 10:13
[2025-05-31] MEDS: VANCOMYCIN 1GM/250ML KIT 250 ML IV SCH (18:33)
[2025-06-01] VITALS (7 sets, daily range): BP systolic 125–141; BP diastolic 60–88; PULSE 67–80; RESP 16–20; TEMP 97.7–98.2; O2SAT 94–98
[2025-06-01] MEDS: InsuLIN REG 1unit/0.01ml Soln (100units/ml) SC ONE (09:49)
--- NOTE | 2025-06-01 11:48 | DVHPN2 ---
Reviewed: Care Plan, H&P, Labs, Medications, Previous Orders, Radiology Changes from previous H/P or p: No Changes Eyes: No Pain, No Vision change, No Conjunctivae inflammation, No Eyelid inflammation, No Other, No Redness ENT: No Ear pain, No Ear discharge, No Nose pain, No Nose discharge, No Nose congestion, No Mouth pain, No Mouth swelling, No Throat pain, No Throat swelling, No Other Cardiovascular: No Chest Pain, No Palpitations, No Orthopnea, No Paroxysmal Noc. Dyspnea, No Edema, No Lt Headedness, No Other Respiratory: No Cough, No Dry, No Shortness of breath, No SOB with excertion, No Wheezing, No Hemoptysis, No Pleuritic Pain, No Sputum, No Other Gastrointestinal: No Nausea, No Vomiting, No Abdominal Pain, No Diarrhea, No Constipation, No Melena, No Hematochezia, No Other Genitourinary: No Dysuria, No Frequency, No Incontinence, No Hematuria, No Retention, No Other Musculoskeletal: No other, No neck pain, No shoulder pain, No arm pain, No back pain, No hand pain, No leg pain, No foot pain Skin: No Rash, No Lesions, No Jaundice, No Bruising, No Other Objective Vitals Vital Signs Date Time Temp Pulse Resp B/P (MAP) Pulse Ox O2 Delivery O2 Flow Rate FiO2 06/01/25 09:00 98.1 79 16 141/60 (87) 95 98.1 06/01/25 08:05 Room Air* 0 21 Intake/Output Intake and Output 06/01/25 07:00 Intake Total 1280 ml Output Total 1200 ml Balance 80 ml Intake Oral 830 ml IV Total 450 ml Output Urine Total 1200 ml Medications Current Medications Medications Dose Ordered Sig/Edith Route Start Time Stop Time Status Last Admin Dose Admin Ondansetron HCl 4 mg Q4HP PRN IV 05/29/25 15:00 05/30/25 22:05 4 MG Docusate Sodium 100 mg BIDPRN PRN PO 05/29/25 15:00 Enoxaparin Sodium 40 mg DAILY SC 05/30/25 10:00 06/01/25 09:47 40 MG Morphine Sulfate 2 mg Q4HPRN PRN IV 05/29/25 15:00 Nitroglycerin 0.4 mg Q5MINP PRN SL 05/29/25 15:00 Dextrose 50 ml UD PRN IV 05/29/25 15:00 Cancel Piperacillin Sod/ Tazobactam Sod 100 ml @ 25 mls/hr Q8HR IV 05/29/25 22:00 06/01/25 06:49 25 MLS/HR Vancomycin HCl 0 ml @ 0 mls/hr UD IV 05/29/25 16:45 Vancomycin HCl 100 ml @ 200 mls/hr Q12H IV 05/29/25 18:00 Cancel Diagnostic Test (Pha) 1 strip IQ4HR 05/29/25 20:00 06/01/25 08:00 1 STRIP Dextrose 50 ml UD PRN IV 05/29/25 18:15 Sodium Chloride 1,000 ml @ 125 mls/hr Q8H IV 05/30/25 11:15 06/01/25 04:00 125 MLS/HR Vancomycin HCl 250 ml @ 250 mls/hr Q12H IV 05/31/25 18:00 06/01/25 05:04 250 MLS/HR Insulin Human Regular IQ4HR SC 06/01/25 12:00 Laboratory Results Laboratory Tests 05/30/25 05:20 05/31/25 05:33 Urinalysis Test 05/29/25 12:35 Urine Color Light-yellow (Yellow) Urine Clarity Clear (Clear) Urine pH 5.0 (5.0-9.0) Urine Specific [place] 1.014 (1.001-1.035) Urine Protein Negative (Negative) Urine Ketones 3+ (Negative) H Urine Blood Trace /uL (Negative) H Urine Nitrite Negative (Negative) Urine Bilirubin Negative (Negative) Urine Urobilinogen Normal mg/dL (Negative) Urine Leukocyte Esterase Negative /uL (Negative) Urine RBC 3 /hpf (0 - 3) Urine Microscopic WBC 1 /HPF (0-3) Urine Squamous Epithelial Cells Few /hpf (<5) Urine Bacteria None seen /hpf (None Seen) Urine Glucose 4+ mg/dL (Normal) H Microbiology Microbiology Date/Time Source Procedure Growth Status 05/29/25 13:22 Blood Blood Culture - Preliminary NO GROWTH AFTER 48 HOURS OF INCUBATION. Resulted Labs and/or images reviewed: Labs reviewed by me, Image(s) reviewed by me Assessment/Plan Assessment/Plan Septic shock with elevated white count hypoglycemia altered mental status Possible aspiration pneumonia Gram-positive versus Gram-negative: Zosyn vancomycin Acute metabolic encephalopathy Acute lactic acidosis Parkinson's disease: Seizures: Keppra Diabetes: Insulin sliding scale Hypothyroidism Chronic Current alcohol abuse: Banana bag Librium History of brain tumor status post surgery and radiation therapy in [place] 2018 Hypoglycemia blood sugar 34 at the scene [facility] Patient is full code Time spent 70 minute Advanced care planning time 20 mts Son Violeta is the customer contact representative Plan discussed with: Patient My Orders Orders - DAKOTAH OLIVAS MD Procedure Category Date Status Time Soft Diet DIET 05/31/25 Transmitted Dinner Insulin R (Human) PHA 06/01/25 In Process (Insulin R) 12:00 Date of Service: Jun 01, 2025 Billing Provider: DAKOTAH OLIVAS MD Common Visit Codes: [id number] CARE 30-74 MIN DAKOTAH OLIVAS MD Jun 01, 2025 11:48
[2025-06-01] MEDS: InsuLIN REG 1unit/0.01ml Soln (100units/ml) SC SCH (13:11)
[2025-06-01] MEDS: FOLIC ACID 1 MG, MAGNESIUM SULF SDV 50% 8 MEQ, MULTIPLE VITAMIN 10 ML, THIAMINE INJ 100... INJ SCH (18:56)
[2025-06-01] MEDS: INSULIN LANTUS (GLARGINE) 1 /0.01ml (100units/ml) SC ONE (23:20)
[2025-06-01] MEDS: INSULIN LANTUS (GLARGINE) 1 /0.01ml (100units/ml) SC SCH (23:26)
[2025-06-02] VITALS (8 sets, daily range): BP systolic 125–158; BP diastolic 77–103; PULSE 62–75; RESP 12–20; TEMP 97.6–99.9; O2SAT 94–99
[2025-06-02] MEDS: INSULIN LANTUS (GLARGINE) 1 /0.01ml (100units/ml) SC ONE (07:28)
--- NOTE | 2025-06-02 13:25 | DVHPN2 ---
Reviewed: Care Plan, H&P, Labs, Medications, Previous Orders, Radiology Changes from previous H/P or p: No Changes Eyes: No Pain, No Vision change, No Conjunctivae inflammation, No Eyelid inflammation, No Other, No Redness ENT: No Ear pain, No Ear discharge, No Nose pain, No Nose discharge, No Nose congestion, No Mouth pain, No Mouth swelling, No Throat pain, No Throat swelling, No Other Cardiovascular: No Chest Pain, No Palpitations, No Orthopnea, No Paroxysmal Noc. Dyspnea, No Edema, No Lt Headedness, No Other Respiratory: No Cough, No Dry, No Shortness of breath, No SOB with excertion, No Wheezing, No Hemoptysis, No Pleuritic Pain, No Sputum, No Other Gastrointestinal: No Nausea, No Vomiting, No Abdominal Pain, No Diarrhea, No Constipation, No Melena, No Hematochezia, No Other Genitourinary: No Dysuria, No Frequency, No Incontinence, No Hematuria, No Retention, No Other Musculoskeletal: No other, No neck pain, No shoulder pain, No arm pain, No back pain, No hand pain, No leg pain, No foot pain Skin: No Rash, No Lesions, No Jaundice, No Bruising, No Other Objective Vitals Vital Signs Date Time Temp Pulse Resp B/P (MAP) Pulse Ox O2 Delivery O2 Flow Rate FiO2 06/02/25 12:39 98.5 74 12 158/103 (121) 96 98.5 06/02/25 08:15 Room Air* 0 21 Intake/Output Intake and Output 06/02/25 07:00 Intake Total 1520 ml Output Total 750 ml Balance 770 ml Intake Oral 1520 ml Output Urine Total 750 ml # Bowel Movements 1 Medications Current Medications Medications Dose Ordered Sig/Edith Route Start Time Stop Time Status Last Admin Dose Admin Ondansetron HCl 4 mg Q4HP PRN IV 05/29/25 15:00 05/30/25 22:05 4 MG Docusate Sodium 100 mg BIDPRN PRN PO 05/29/25 15:00 Enoxaparin Sodium 40 mg DAILY SC 05/30/25 10:00 06/02/25 08:20 40 MG Morphine Sulfate 2 mg Q4HPRN PRN IV 05/29/25 15:00 Nitroglycerin 0.4 mg Q5MINP PRN SL 05/29/25 15:00 Dextrose 50 ml UD PRN IV 05/29/25 15:00 Cancel Piperacillin Sod/ Tazobactam Sod 100 ml @ 25 mls/hr Q8HR IV 05/29/25 22:00 06/02/25 05:33 25 MLS/HR Vancomycin HCl 0 ml @ 0 mls/hr UD IV 05/29/25 16:45 Vancomycin HCl 100 ml @ 200 mls/hr Q12H IV 05/29/25 18:00 Cancel Diagnostic Test (Pha) 1 strip IQ4HR 05/29/25 20:00 06/02/25 12:17 1 STRIP Dextrose 50 ml UD PRN IV 05/29/25 18:15 Sodium Chloride 1,000 ml @ 125 mls/hr Q8H IV 05/30/25 11:15 06/02/25 11:15 125 MLS/HR Insulin Human Regular IQ4HR SC 06/01/25 12:00 06/02/25 12:26 12 UNITS Folic Acid 1 mg/ Magnesium Sulfate 8 meq/ Multivitamins 10 ml/Thiamine HCl 100 mg/Sodium Chloride 1,013.2 ml @ 126.247 mls/hr DAILY@1800 INJ 06/01/25 18:00 06/01/25 18:56 126.247 MLS/HR Chlordiazepoxide HCl 25 mg Q6HR PO 06/01/25 12:00 06/02/25 12:23 25 MG Insulin Glargine 20 units BID@0700,2200 SC 06/01/25 22:00 06/02/25 07:27 20 UNITS Vancomycin HCl 250 ml @ 200 mls/hr Q12H IV 06/02/25 18:00 Laboratory Results Laboratory Tests 05/30/25 05:20 06/02/25 04:58 Urinalysis Test 05/29/25 12:35 Urine Color Light-yellow (Yellow) Urine Clarity Clear (Clear) Urine pH 5.0 (5.0-9.0) Urine Specific [place] 1.014 (1.001-1.035) Urine Protein Negative (Negative) Urine Ketones 3+ (Negative) H Urine Blood Trace /uL (Negative) H Urine Nitrite Negative (Negative) Urine Bilirubin Negative (Negative) Urine Urobilinogen Normal mg/dL (Negative) Urine Leukocyte Esterase Negative /uL (Negative) Urine RBC 3 /hpf (0 - 3) Urine Microscopic WBC 1 /HPF (0-3) Urine Squamous Epithelial Cells Few /hpf (<5) Urine Bacteria None seen /hpf (None Seen) Urine Glucose 4+ mg/dL (Normal) H Microbiology Microbiology Date/Time Source Procedure Growth Status 05/29/25 13:22 Blood Blood Culture - Preliminary NO GROWTH AFTER 72 HOURS OF INCUBATION. Resulted Labs and/or images reviewed: Labs reviewed by me, Image(s) reviewed by me Assessment/Plan Assessment/Plan Septic shock with elevated white count hypoglycemia altered mental status Possible aspiration pneumonia Gram-positive versus Gram-negative: Zosyn vancomycin Acute metabolic encephalopathy Acute lactic acidosis Parkinson's disease: Seizures: Keppra Diabetes: Insulin sliding scale Hypothyroidism Chronic Current alcohol abuse: Banana bag Librium History of brain tumor status post surgery and radiation therapy in [place] 2018 Hypoglycemia blood sugar 34 at the scene Patient came from [facility] living facility Patient is full code Time spent 50 minute Advanced care planning time 20 mts Nate Mcdaniel is the veterans contact representative [phone] . Spoke to him on the phone, he is agreeable for the patient to be discharged to half-way facility for IV antibiotics for two weeks for aspiration pneumonia Plan discussed with: Patient, Son Date of Service: Jun 02, 2025 Billing Provider: DAKOTAH OLIVAS MD Common Visit Codes: [id number] INP/OBS CARE(HIGH) DAKOTAH OLIVAS MD Jun 02, 2025 13:25
[2025-06-02] MEDS: VANCOMYCIN 1.25GM/250ML 250 ML IV SCH (18:23)
[2025-06-03 00:49] VITALS: BP 137/87; PULSE 64; RESP 18; TEMP 98.6; O2SAT 94
[2025-06-03 05:00] VITALS: BP 136/80; PULSE 68; RESP 20; TEMP 98.9; O2SAT 94
[2025-06-03 08:00] VITALS: PULSE 60
[2025-06-03 09:00] VITALS: BP 147/79; PULSE 67; RESP 18; TEMP 97.5; O2SAT 99
--- NOTE | 2025-06-03 10:22 | DVHPN2 ---
Reviewed: Care Plan, H&P, Labs, Medications, Previous Orders, Radiology Changes from previous H/P or p: No Changes Eyes: No Pain, No Vision change, No Conjunctivae inflammation, No Eyelid inflammation, No Other, No Redness ENT: No Ear pain, No Ear discharge, No Nose pain, No Nose discharge, No Nose congestion, No Mouth pain, No Mouth swelling, No Throat pain, No Throat swelling, No Other Cardiovascular: No Chest Pain, No Palpitations, No Orthopnea, No Paroxysmal Noc. Dyspnea, No Edema, No Lt Headedness, No Other Respiratory: No Cough, No Dry, No Shortness of breath, No SOB with excertion, No Wheezing, No Hemoptysis, No Pleuritic Pain, No Sputum, No Other Gastrointestinal: No Nausea, No Vomiting, No Abdominal Pain, No Diarrhea, No Constipation, No Melena, No Hematochezia, No Other Genitourinary: No Dysuria, No Frequency, No Incontinence, No Hematuria, No Retention, No Other Musculoskeletal: No other, No neck pain, No shoulder pain, No arm pain, No back pain, No hand pain, No leg pain, No foot pain Skin: No Rash, No Lesions, No Jaundice, No Bruising, No Other Objective Vitals Vital Signs Date Time Temp Pulse Resp B/P (MAP) Pulse Ox O2 Delivery O2 Flow Rate FiO2 06/03/25 09:00 97.5 67 18 147/79 (101) 99 97.5 06/02/25 19:30 Room Air* 0 21 Intake/Output Intake and Output 06/03/25 07:00 Intake Total 1830 ml Output Total 600 ml Balance 1230 ml Intake Oral 1480 ml IV Total 350 ml Output Urine Total 600 ml # Voids 2 Medications Current Medications Medications Dose Ordered Sig/Edith Route Start Time Stop Time Status Last Admin Dose Admin Ondansetron HCl 4 mg Q4HP PRN IV 05/29/25 15:00 05/30/25 22:05 4 MG Docusate Sodium 100 mg BIDPRN PRN PO 05/29/25 15:00 Enoxaparin Sodium 40 mg DAILY SC 05/30/25 10:00 06/03/25 10:15 40 MG Morphine Sulfate 2 mg Q4HPRN PRN IV 05/29/25 15:00 Nitroglycerin 0.4 mg Q5MINP PRN SL 05/29/25 15:00 Dextrose 50 ml UD PRN IV 05/29/25 15:00 Cancel Piperacillin Sod/ Tazobactam Sod 100 ml @ 25 mls/hr Q8HR IV 05/29/25 22:00 06/03/25 05:52 25 MLS/HR Vancomycin HCl 0 ml @ 0 mls/hr UD IV 05/29/25 16:45 Vancomycin HCl 100 ml @ 200 mls/hr Q12H IV 05/29/25 18:00 Cancel Diagnostic Test (Pha) 1 strip IQ4HR 05/29/25 20:00 06/03/25 06:11 1 STRIP Dextrose 50 ml UD PRN IV 05/29/25 18:15 Sodium Chloride 1,000 ml @ 125 mls/hr Q8H IV 05/30/25 11:15 06/03/25 04:29 125 MLS/HR Insulin Human Regular IQ4HR SC 06/01/25 12:00 06/02/25 20:08 12 UNITS Folic Acid 1 mg/ Magnesium Sulfate 8 meq/ Multivitamins 10 ml/Thiamine HCl 100 mg/Sodium Chloride 1,013.2 ml @ 126.247 mls/hr DAILY@1800 INJ 06/01/25 18:00 06/02/25 18:30 126.247 MLS/HR Chlordiazepoxide HCl 25 mg Q6HR PO 06/01/25 12:00 06/03/25 05:54 25 MG Insulin Glargine 20 units BID@0700,2200 SC 06/01/25 22:00 06/02/25 23:44 20 UNITS Vancomycin HCl 250 ml @ 200 mls/hr Q12H IV 06/02/25 18:00 06/03/25 05:54 200 MLS/HR Laboratory Results Laboratory Tests 05/30/25 05:20 06/03/25 09:19 Urinalysis Test 05/29/25 12:35 Urine Color Light-yellow (Yellow) Urine Clarity Clear (Clear) Urine pH 5.0 (5.0-9.0) Urine Specific [place] 1.014 (1.001-1.035) Urine Protein Negative (Negative) Urine Ketones 3+ (Negative) H Urine Blood Trace /uL (Negative) H Urine Nitrite Negative (Negative) Urine Bilirubin Negative (Negative) Urine Urobilinogen Normal mg/dL (Negative) Urine Leukocyte Esterase Negative /uL (Negative) Urine RBC 3 /hpf (0 - 3) Urine Microscopic WBC 1 /HPF (0-3) Urine Squamous Epithelial Cells Few /hpf (<5) Urine Bacteria None seen /hpf (None Seen) Urine Glucose 4+ mg/dL (Normal) H Microbiology Microbiology Date/Time Source Procedure Growth Status 05/29/25 13:22 Blood Blood Culture - Preliminary NO GROWTH AFTER 72 HOURS OF INCUBATION. Resulted Labs and/or images reviewed: Labs reviewed by me, Image(s) reviewed by me Assessment/Plan Assessment/Plan Septic shock with elevated white count hypoglycemia altered mental status Possible aspiration pneumonia Gram-positive versus Gram-negative: Zosyn vancomycin Acute metabolic encephalopathy Acute lactic acidosis Parkinson's disease: Seizures: Keppra Diabetes: Insulin sliding scale Hypothyroidism Chronic Current alcohol abuse: Banana bag Librium History of brain tumor status post surgery and radiation therapy in [place] 2018 Hypoglycemia blood sugar 34 at the scene Patient came from [facility] Patient is full code Time spent 50 minute Advanced care planning time 20 mts Nate Mcdaniel is the contact lens polisher [phone] . Spoke to him on the phone, he is agreeable for the patient to be discharged to [facility] for IV antibiotics for two weeks for aspiration pneumonia Discharged to [facility] today Plan discussed with: Patient Date of Service: Jun 03, 2025 Billing Provider: DAKOTAH OLIVAS MD Common Visit Codes: [id number] INP/OBS CARE(HIGH) DAKOTAH OLIVAS MD Jun 03, 2025 10:22
--- NOTE | 2025-06-03 10:30 | DVHDS2 ---
Discharge Summary Date of Admission May 29, 2025 at 14:53 Date of Discharge: Jun 03, 2025 Admitting Diagnosis Altered mental status and weakness Wounds: None Labs/Diagnostic Data: Laboratory Results Test 06/03/25 09:19 06/03/25 08:20 06/02/25 04:58 05/30/25 05:20 Creatinine 0.83 mg/dL (0.700-1.30) Glomerular Filtration Rate Calc 93 mL/min (>90) POC Glucose 126 mg/dl (70-106) Vancomycin Level Trough 12.5 ug/mL (5-10) White Blood Count 8.9 10^3/uL (4.4-10.8) Red Blood Count 4.70 10^6/uL (4.5-5.90) Hemoglobin 15.0 g/dL (13.5-17.5) Hematocrit 41.8 % (41.0-53.0) Mean Corpuscular Volume 89.1 fL (80.0-100.0) Mean Corpuscular Hemoglobin 31.9 pg (28.0-32.0) Mean Corpuscular Hemoglobin Concent 35.8 g/dL (32.0-36.0) Red Cell Distribution Width 12.8 % (11.8-14.3) Platelet Count 193 10^3/uL (140-450) Mean Platelet Volume 9.4 fL (6.9-10.8) Neutrophils (%) (Auto) 66.0 % (37.0-80.0) Lymphocytes (%) (Auto) 19.8 % (10.0-50.0) Monocytes (%) (Auto) 13.1 % (0.0-12.0) Eosinophils (%) (Auto) 0.2 % (0.0-7.0) Basophils (%) (Auto) 0.9 % (0.0-2.0) Neutrophils # (Auto) 5.9 10 ^3/uL (1.6-8.6) Lymphocytes # (Auto) 1.8 10 ^3/uL (0.4-5.4) Monocytes # (Auto) 1.2 10 ^3/uL (0-1.3) Eosinophils # (Auto) 0 10 ^3/uL (0-0.8) Basophils # (Auto) 0.1 10 ^3/uL (0-0.2) Nucleated Red Blood Cells 0.0 % Sodium Level 137 mmol/L (136-145) Potassium Level 4.5 mmol/L (3.5-5.1) Chloride Level 102 mmol/L (98-107) Carbon Dioxide Level 23 mmol/L (20-31) Anion Gap 12 (5-15) Blood Urea Nitrogen 19 mg/dL (9-23) BUN/Creatinine Ratio 14.3 (10.0-20.0) Serum Glucose 312 mg/dL (74-106) Calcium Level 9.7 mg/dL (8.7-10.4) Total Bilirubin 0.9 mg/dL (0.2-1.0) Aspartate Amino Transferase (AST) 27 U/L (13-40) Alanine Aminotransferase (ALT) 27 U/L (7-40) Alkaline Phosphatase 96 U/L (46-116) Total Protein 7.0 g/dL (5.7-8.2) Albumin 4.2 g/dL (3.2-4.8) Test 05/29/25 15:32 05/29/25 13:22 05/29/25 12:35 Lactic Acid Level 5.0 mmol/L (0.4-2.0) Troponin I High Sensitivity 12 ng/L (</=54) Urine Color Light-yellow (Yellow) Urine Clarity Clear (Clear) Urine pH 5.0 (5.0-9.0) Urine Specific [place] 1.014 (1.001-1.035) Urine Protein Negative (Negative) Urine Ketones 3+ (Negative) Urine Blood Trace /uL (Negative) Urine Nitrite Negative (Negative) Urine Bilirubin Negative (Negative) Urine Urobilinogen Normal mg/dL (Negative) Urine Leukocyte Esterase Negative /uL (Negative) Urine RBC 3 /hpf (0 - 3) Urine Microscopic WBC 1 /HPF (0-3) Urine Squamous Epithelial Cells Few /hpf (<5) Urine Bacteria None seen /hpf (None Seen) Urine Glucose 4+ mg/dL (Normal) Other Laboratory Tests 06/03/25 09:19 05/30/25 05:20 Brief Hx & Hospital Course: 62-year-old male with a history of Parkinson's disease diabetes hypothyroidism chronic current alcohol abuse history of brain tumor status post surgery and radiation therapy [place] 2019 [facility] altered mental status shortness of breath and confusion found to be in septic shock with the elevated white count hypoglycemia and altered mental status found to have aspiration pneumonia treated with the Zosyn and vancomycin Keppra continued for seizures diabetes controlled banana bag for the alcohol abuse. At the time of discharge patient is alert awake oriented three much better. Discussed with the patient's son Violeta on the phone and he agreed for the patient to go to retirement facility to receive IV Zosyn for two weeks for aspiration pneumonia. Discharged to retirement facility Consults/Reason for consult None Operations or Procedures None Condition at Discharge: Fair Final Diagnosis/Problems List Septic shock with elevated white count hypoglycemia altered mental status Possible aspiration pneumonia Gram-positive versus Gram-negative: Zosyn vancomycin Acute metabolic encephalopathy Acute lactic acidosis Parkinson's disease: Seizures: Keppra Diabetes: Insulin sliding scale Hypothyroidism Chronic Current alcohol abuse: Banana bag Librium History of brain tumor status post surgery and radiation therapy in [place] 2019 Discharge Disposition: Shelter Facility Discharge Instruct/Medications Diet: Regular Activity: Light activity Follow Up/Referral: Follow up with the [facility] Dr Medications: Zosyn 3.375 g IV q.8 hours for 14 days for aspiration pneumonia See list for other meds Scheduled Amlodipine Besylate (Amlodipine Besylate), 10 MG PO DAILY, (Reported) Diclofenac Sodium (Topical) (Voltaren Arthritis Pain), 1 % EX TID, (Reported) Diphenhydramine Hcl (Sleep Tabs), 25 MG PO Q6HPRN, (Reported) Gabapentin (Gabapentin), 100 MG PO TID, (Reported) Hydrocodone-Acetaminophen (Hydrocodone Bitartrate/AC 5-325 mg), 1 TAB PO TID, (Reported) Insulin Aspart (Novolog), 100 UNIT IJ ACHS, (Reported) Insulin Glargine (Basaglar Kwikpen), 100 UNIT SC ACHS, (Reported) Levetiracetam (Keppra Tablet), 750 MG PO BID, (Reported) Levodopa W/Carbidopa (Sinemet), 2 TAB PO BID, (Reported) Levothyroxine Sodium (Levothyroxine Sodium), 150 MCG PO QAM, (Reported) Metformin Hydrochloride (Metformin Hcl), 500 MG PO IBID, (Reported) Metoprolol Tartrate (Lopressor), 12.5 MG PO Q12HR, (Reported) Multiple Vitamins W/ Minerals (Centrum Silver 50+Men), 1 TAB PO DAILY, (Reported) Spironolactone (Spironolactone), 1 TAB PO DAILY, (Reported) Scheduled PRN Cyclobenzaprine Hcl (Cyclobenzaprine Hcl), 5 MG PO Q8HP PRN for FOR MUSCLE SPASM, (Reported) 39 (Time taken for discharge summary 39 minutes) Discharge Statement: "Patient was advised to return to the ER or call 911 if any headaches, dizziness, shortness of breath, chest pain, abdominal pain, bleeding, fevers, or worsening of medical condition. Patient was counseled about treatment plan, medications, possible side effects, patientverbalized understanding. All questions were answered to the best of my ability. This discharge took greater then 30 minutes in planning, reviewing documentation, counseling the patient, and discussing with other team members." ASSESSMENT ASSESSMENT Hospital Course Improved Assessment Septic shock with elevated white count hypoglycemia altered mental status Possible aspiration pneumonia Gram-positive versus Gram-negative: Zosyn vancomycin Acute metabolic encephalopathy Acute lactic acidosis Parkinson's disease: Seizures: Keppra Diabetes: Insulin sliding scale Hypothyroidism Chronic Current alcohol abuse: Banana bag Librium History of brain tumor status post surgery and radiation therapy in [place] 2018 Date of Service: Jun 03, 2025 Billing Provider: DAKOTAH OLIVAS MD Common Visit Codes: [id number] DISCH DAY >30min DAKOTAH OLIVAS MD Jun 03, 2025 10:30
[2025-06-03 13:00] VITALS: BP 163/95; PULSE 65; RESP 19; TEMP 97.3; O2SAT 100
[2025-06-03 15:10] LABS: COVID19 ANTIGEN SOFIA FIA NEGATIVE (NEGATIVE)
== END 2025-06-03 14:43 | DRG 871 ==
LOC: EDBD 09:02 → ER 09:02 → OVERFLOW 14:53 → TELE-WESTW 05-30 02:40
PROVIDERS: ADMIT Family Medicine; ATTEND Family Medicine
PROC: 05HD33Z Insertion of Infusion Device into Right Cephalic Vein, Percutaneous Approach (ICD-10-PCS; principal; 2025-06-03)
PROC: B54MZZA Ultrasonography of Right Upper Extremity Veins, Guidance (ICD-10-PCS; 2025-06-03)
DX: A41.9 Sepsis, unspecified organism (principal); G93.41 Metabolic encephalopathy; J69.0 Pneumonitis due to inhalation of food and vomit; J15.9 Unspecified bacterial pneumonia; R65.21 Severe sepsis with septic shock; J15.69 Pneumonia due to other Gram-negative bacteria; E87.21 Acute metabolic acidosis; G20.A1 Parkinson's disease without dyskinesia, without mention of fluctuations; E11.649 Type 2 diabetes mellitus with hypoglycemia without coma; E03.9 Hypothyroidism, unspecified; I10 Essential (primary) hypertension; F10.10 Alcohol abuse, uncomplicated; Z79.899 Other long term (current) drug therapy; Z92.3 Personal history of irradiation; Y90.9 Presence of alcohol in blood, level not specified
CPT/HCPCS: 36415; 71045; 71260; 80048; 80053; 80202; 81001; 82565; 82962; 83605; 84484; 85025; 87040; 87426; 92610; 96365; 97110; 97116; 97163; 99291; G0378; J0692; J1815; J2405; J2543